=== PATIENT | female | born 1965 | race Caucasian/White ===

== ENCOUNTER 2017-09-08 15:38 | Emergency (ER) | payer OTHER ==
[~2017-09-08] VITALS: Ht 165.1 cm; Wt 59.4 kg
[~2017-09-08 15:38] MED LIST: ASPI325T28 PO; DEPA500T2 PO; MECL12.575 PO; OXYC-517 PO; REGL10TA6 PO; TOPA50TA8 PO; VITA-193 PO; VITMTA PO
[2017-09-08] MEDS ORDERED: MORPHINE 4 MG/ML 1ML SYRINGE IV ONE (16:15)
[2017-09-08] MEDS ORDERED: ONDANSETRON 4MG/2ML VIAL (J2405) IV ONE ×2 (16:15→21:00)
--- NOTE | 2017-09-08 16:30 | REP ---
Chest one-view HISTORY: Infarction Comparison: 02/06/2016 The lungs are clear. The heart is normal in size. The pulmonary vasculature is normal in appearance. Impression: No acute disease. Signed by Lui Marie MD 09/08/2017 04:22 P
--- NOTE | 2017-09-08 16:43 | REP ---
CT brain without contrast: History: CVA. Comparison study: November 07, 2014. CT findings: Preliminary digital porcelain enamel installer radiograph is unremarkable. Bone window settings demonstrate an intact bony calvarium. Visualized paranasal sinuses are clear. No intraorbital abnormality is seen. No vascular calcification is visible. Lateral, third, fourth ventricles are normal in size and position. Elliott-white differentiation pattern is normal above and below the tentorium. There is no evidence of intracranial hemorrhage. No infarct, mass, extra-axial fluid collection or midline shift is seen. Impression: Negative noncontrast brain CT. Signed by Alexi Jones MD 09/08/2017 05:05 P
[2017-09-08 16:47] LABS: BASO # 0.1 10^3/uL (0.0-0.2); BASO % 1.1 % (0.0-1.0); EOS # 0.1 10^3/uL (0.0-0.50); EOS % 2.5 % (0.0-3.0); IMMATURE GRANULOCYTE % 0.2 % (0-0); LYMPH % 36.3 % (24.0-44.0); MEAN CORPUSCULAR HEMOGLOBIN 28.1 pg (27.0-33.0); MEAN CORPUSCULAR HGB CONC 32.8 g/dl (32.0-36.5); MEAN CORPUSCULAR VOLUME 85.7 fl (80.0-96.0); MONO # 0.5 10^3/uL (0.0-0.8); MONO % 9.3 % (0.0-5.0); NEUTROPHILS # 2.9 10^3/uL (1.8-7.7); NEUTROPHILS % 50.6 % (36.0-66.0); PLATELET COUNT, AUTOMATED 213 10^3/uL (150-450); RED CELL DISTRIBUTION WIDTH 14.9 % (11.5-14.5); WHITE BLOOD COUNT 5.6 10^3/uL (4.0-10.0)
[2017-09-08 16:58] LABS: INR 0.93
--- NOTE | 2017-09-08 17:08 | ECGEPIP ---
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
[2017-09-08 17:16] LABS: ANION GAP 3 MEQ/L (8-16); BLOOD UREA NITROGEN 17 MG/DL (7-18); CALCIUM LEVEL 9.4 MG/DL (8.5-10.1); CARBON DIOXIDE LEVEL 30 MEQ/L (21-32); CHLORIDE LEVEL 108 MEQ/L (98-107); CREATININE FOR GFR 0.65 MG/DL (0.55-1.02); GLOMERULAR FILTRATION RATE > 60.0 (>58); GLUCOSE, FASTING 88 MG/DL (70-105); POTASSIUM SERUM 3.9 MEQ/L (3.5-5.1); SODIUM LEVEL 141 MEQ/L (136-145)
[2017-09-08] MEDS ORDERED: MORPHINE 2 MG/ML 1ML SYRINGE IV ONE (17:45)
[2017-09-08 18:46] VITALS: BP 117/55
--- NOTE | 2017-09-08 20:30 | REPUSA ---
CLINICAL HISTORY: -VISION CHANGES, HEADACHE WITH RT SIDED FACIAL PARATHESIAS TECHNIQUE: MRI of the brain was performed without administration of intravenous contrast material. T1 spine echo, T2 fast spin echo, DWI and FLAIR sequences were obtained in sagittal, axial and coronal planes. FINDINGS: The sella and parasellar regions are unremarkable in appearance. The corpus callosum and cerebellar t onsils are of normal configuration and position. There are no intra or extra-axial collections. There is no mass effect or midline shift. There is no evidence of hematoma formation. There is no hydrocep halus. There is asymmetry of lateral ventricles with left lateral ventricle somewhat larger than the right, this is likely congenital and of doubtful clinical concern. The brain stem shows no mass effects, infarcts or hemorrhage. There are no cerebellopontine tumors. T he acoustic nerves are symmetrical. No cerebellar intra-axial pathology delineated. The fourth ventri miesha and aqueduct are normal. No abnormalities of the optic nerves are identified. There is no evidenc e of atrophic or degenerative changes. No dural or subdural masses or collections are detected. The visualized arterial structures demonstrate normal appearing flow voids. The VII and VIII nerve bu ndles are visualized and are unremarkable in appearance. There are no suspicious signal abnormalities within the infra or supratentorial space. Mucosal thickening is seen involving bilateral ethmoid and maxillary sinuses compatible with chronic sinusitis. IMPRESSION: Asymmetry of lateral ventricles with left lateral ventricle somewhat larger than the right, this is l ikely congenital and of doubtful clinical concern. Chronic ethmoid and maxillary sinusitis, otherwise normal MRI of the brain. Thank you for your kind referral of this patient.
--- NOTE | 2017-09-08 20:30 | REPUSA ---
CLINICAL HISTORY: -VISION CHANGES, HEADACHE WITH RT SIDED FACIAL PARATHESIAS TECHNIQUE: Three dimensional qfjo-[id number] angiography is performed of the [place]. The [place] dy was performed without IV contrast agent. FINDINGS: The supraclinoid portions of the internal carotid arteries are of normal shape. The normal bifurcation is seen. The middle cerebral arteries are unremarkable in appearance. The posterior circu lation is visualized and shows no evidence of occlusion or aneurysm formation. The basilar tip is see n and shows no aneurysm formation. There is no evidence of beading to suggest vasculitis. IMPRESSION: MRA of the [place] is within normal limits. Thank you for your kind referral of this patient.
[2017-09-08] MEDS ORDERED: NORCO 5/325MG TABLET (BULK FOR ED) PO ONE (21:00)
== END 2017-09-08 21:41 | disposition home or self-care (01) ==
LOC: M ED 15:38
DX: R51 Headache (principal); Z87.820 Personal history of traumatic brain injury; Z86.73 Personal history of transient ischemic attack (TIA), and cerebral infarction without residual deficits; Z98.890 Other specified postprocedural states
CPT/HCPCS: 36415; 70450; 70544; 70551; 71010; 80048; 82550; 82553; 85025; 85610; 85730; 86850; 86900; 86901; 93005; 93041; 94760; 96374; 96375; 99285; J2405

== ENCOUNTER → 2018-06-29 | Outpatient (REF) | payer OTHER ==
[2018-06-29 17:54] LABS: IRON (FE) 47 UG/DL (50-170)
[2018-06-29 18:03] LABS: VITAMIN B12 LEVEL 983 PG/ML (247-911)
[2018-07-05 10:19] LABS: VITAMIN B1 LEVEL WHOLE BLOOD 82.8 nmol/L (66.5-200.0)
[2018-07-05 10:19] LABS: VITAMIN A, RETINOL LEVEL 23.3 ug/dL (33.1-100.0)
== END ==
LOC: M LAB REF 16:46
DX: Z98.84 Bariatric surgery status (principal)

== ENCOUNTER 2018-09-22 10:46 | Emergency (ER) | payer OTHER ==
[2018-09-22 11:24] LABS: BASO # 0.1 10^3/uL (0.0-0.2); BASO % 1.1 % (0.0-1.0); EOS # 0.1 10^3/uL (0.0-0.50); EOS % 1.5 % (0.0-3.0); HEMOGLOBIN 12.8 g/dl (12.0-15.5); IMMATURE GRANULOCYTE % 0.2 % (0-3.0); LYMPH # 1.6 10^3/uL (1.5-4.5); LYMPH % 29.5 % (24.0-44.0); MEAN CORPUSCULAR HEMOGLOBIN 29.2 pg (27.0-33.0); MEAN CORPUSCULAR HGB CONC 32.8 g/dl (32.0-36.5); MEAN CORPUSCULAR VOLUME 88.8 fl (80.0-96.0); MONO # 0.5 10^3/uL (0.0-0.8); MONO % 9.3 % (0.0-5.0); NEUTROPHILS # 3.1 10^3/uL (1.8-7.7); NEUTROPHILS % 58.4 % (36.0-66.0); PLATELET COUNT, AUTOMATED 212 10^3/uL (150-450); RED BLOOD COUNT 4.39 10^6/uL (4.00-5.40); RED CELL DISTRIBUTION WIDTH 14.2 % (11.5-14.5); WHITE BLOOD COUNT 5.3 10^3/uL (4.0-10.0)
[2018-09-22 11:37] LABS: INR 0.96; PROTHROMBIN TIME 12.8 SECONDS (12.1-14.4)
[2018-09-22 11:38] LABS: PARTIAL THROMBOPLASTIN TIME 27.3 SECONDS (25.4-37.6)
[2018-09-22 11:55] LABS: ALBUMIN 3.7 GM/DL (3.2-5.2); ALBUMIN/GLOBULIN RATIO 1.06 (1.00-1.93); ALKALINE PHOSPHATASE 87 U/L (45-117); ALT/SGPT 33 U/L (12-78); ANION GAP 7 MEQ/L (8-16); AST/SGOT 26 U/L (7-37); BILIRUBIN,DIRECT 0.2 MG/DL (0.0-0.2); BILIRUBIN,TOTAL 0.5 MG/DL (0.2-1.0); BLOOD UREA NITROGEN 11 MG/DL (7-18); CARBON DIOXIDE LEVEL 28 MEQ/L (21-32); CHLORIDE LEVEL 108 MEQ/L (98-107); CK-MB VALUE MASS < 1.0 NG/ML (<3.6); CPK CREATINE PHOSPHOKINASE 105 U/L (26-192); CREATININE FOR GFR 0.68 MG/DL (0.55-1.30); FREE T4 1.01 NG/DL (0.76-1.46); GLOMERULAR FILTRATION RATE > 60.0 (>51); GLUCOSE, FASTING 138 MG/DL (70-100); LIPASE 257 U/L (73-393); MB/CK RELATIVE INDEX 0.95 (< OR =4); POTASSIUM SERUM 3.9 MEQ/L (3.5-5.1); SODIUM LEVEL 143 MEQ/L (136-145); TOTAL PROTEIN 7.2 GM/DL (6.4-8.2); TROPONIN I < 0.02 NG/ML (< 0.10)
[2018-09-22] MEDS: diphenhydrAMINE INJ 50MG/ML VIAL (J1200) IV (13:00)
[2018-09-22] MEDS: ASPIRIN 325 MG TAB PO (13:00)
[2018-09-22] MEDS: NS 1,000 ML IV (13:00)
[2018-09-22] MEDS: METOCLOPRAMIDE INJ 10MG/2ML VIAL (J2765) IV (13:00)
[2018-09-22 13:46] LABS: D-DIMER QUANT < 270.0 ng/ml (<500)
== END 2018-09-22 14:51 | disposition home or self-care (01) ==
LOC: M ED 10:46
DX: R07.89 Other chest pain (principal); R06.02 Shortness of breath; I25.10 Atherosclerotic heart disease of native coronary artery without angina pectoris; I25.2 Old myocardial infarction; Z82.49 Family history of ischemic heart disease and other diseases of the circulatory system; Z98.84 Bariatric surgery status
CPT/HCPCS: J1200

== ENCOUNTER → 2018-10-05 | Outpatient (REF) | payer OTHER ==
[2018-10-05 12:50] LABS: FERRITIN 8 NG/ML (8-252)
[2018-10-05 12:50] LABS: IRON (FE) 111 UG/DL (50-170)
[2018-10-06 17:55] LABS: TOTAL 25(OH) VITAMIN D 21.8 NG/ML (30.0-100.0)
[2018-10-09 14:08] LABS: VITAMIN A, RETINOL LEVEL 17.6 ug/dL (33.1-100.0)
== END ==
LOC: M LAB REF 12:09
DX: Z98.84 Bariatric surgery status (principal)

== ENCOUNTER → 2018-12-01 | Outpatient (REF) | payer OTHER ==
[~2018-12-01] MED LIST changes: +ASPI-222 PO; -ASPI325T28 PO; +HYDR-3363 PO
[2018-12-08 00:06] LABS: VITAMIN A, RETINOL LEVEL 15.7 ug/dL (20.1-62.0); VITAMIN B1 LEVEL WHOLE BLOOD 112.1 nmol/L (66.5-200.0)
== END ==
LOC: M LAB REF 17:08
PROVIDERS: ATTEND Nurse Practitioner Adult Health
DX: J40 Bronchitis, not specified as acute or chronic (principal); Z98.84 Bariatric surgery status

== ENCOUNTER → 2019-03-14 | Outpatient (REF) | payer OTHER | LOC: M LAB REF 12:05 | PROVIDERS: ATTEND Nurse Practitioner Adult Health | DX: E50.9 Vitamin A deficiency, unspecified (principal) ==

== ENCOUNTER → 2019-05-09 | Outpatient (REF) | payer OTHER | LOC: M LAB REF 12:32 | PROVIDERS: ATTEND Nurse Practitioner Adult Health | DX: D50.9 Iron deficiency anemia, unspecified (principal) ==

== ENCOUNTER → 2019-06-09 | Outpatient (REF) | payer OTHER ==
[~2019-06-09] MED LIST changes: +AMOX500C
== END ==
LOC: M LAB REF 16:54
PROVIDERS: ATTEND Physician Assistant
DX: M54.5 Low back pain (principal); R10.32 Left lower quadrant pain

== ENCOUNTER 2019-06-11 04:50 | Emergency (ER) | payer OTHER ==
[~2019-06-11] VITALS: Ht 167.6 cm; Wt 77.3 kg
[~2019-06-11 04:50] MED LIST changes: -AMOX500C
[2019-06-11] MEDS ORDERED: AMOX500C (05:02)
[2019-06-11 05:43] LABS: BASO # 0.1 10^3/uL (0.0-0.2); BASO % 1.2 % (0.0-1.0); EOS # 0.1 10^3/uL (0.0-0.50); EOS % 2.7 % (0.0-3.0); HEMATOCRIT 38.9 % (36.0-47.0); HEMOGLOBIN 12.8 g/dl (12.0-15.5); LYMPH # 1.7 10^3/uL (1.5-4.5); LYMPH % 32.6 % (24.0-44.0); MEAN CORPUSCULAR HEMOGLOBIN 30.9 pg (27.0-33.0); MEAN CORPUSCULAR HGB CONC 32.9 g/dl (32.0-36.5); MONO # 0.6 10^3/uL (0.0-0.8); MONO % 11.5 % (0.0-5.0); NEUTROPHILS # 2.7 10^3/uL (1.8-7.7); NEUTROPHILS % 51.8 % (36.0-66.0); PLATELET COUNT, AUTOMATED 176 10^3/uL (150-450); RED BLOOD COUNT 4.14 10^6/uL (4.00-5.40); WHITE BLOOD COUNT 5.1 10^3/uL (4.0-10.0)
[2019-06-11 06:03] LABS: ALBUMIN 3.5 GM/DL (3.2-5.2); ALT/SGPT 26 U/L (12-78); BILIRUBIN,DIRECT 0.1 MG/DL (0.0-0.2); BILIRUBIN,TOTAL 0.3 MG/DL (0.2-1.0); BLOOD UREA NITROGEN 16 MG/DL (7-18); CALCIUM LEVEL 8.6 MG/DL (8.5-10.1); CARBON DIOXIDE LEVEL 26 MEQ/L (21-32); CHLORIDE LEVEL 112 MEQ/L (98-107); CREATININE FOR GFR 0.63 MG/DL (0.55-1.30); GLOMERULAR FILTRATION RATE > 60.0 (>51); GLUCOSE, FASTING 101 MG/DL (70-100); LIPASE 311 U/L (73-393); POTASSIUM SERUM 4.2 MEQ/L (3.5-5.1); SODIUM LEVEL 142 MEQ/L (136-145); TOTAL PROTEIN 6.5 GM/DL (6.4-8.2)
[2019-06-11] MEDS ORDERED: KETOROLAC 30 MG/ML VIAL (J1885) As Ordered ONE (06:51)
[2019-06-11] MEDS ORDERED: KETOROLAC 30 MG/ML VIAL (J1885) IV ONE (07:00)
[2019-06-11] MEDS ORDERED: NS 1,000 ML IV SCH (07:17)
[2019-06-11] MEDS ORDERED: ISOVUE-370 76% 100ML VIAL (Q9967) As Ordered ONE (07:26)
[2019-06-11] MEDS ORDERED: MORPHINE 4 MG/ML 1ML VIAL/SYRINGE (J2270) IV ONE (07:30)
[2019-06-11 07:38] LABS: CK-MB VALUE MASS < 1.0 NG/ML (<3.6); CPK CREATINE PHOSPHOKINASE 98 U/L (26-192); MB/CK RELATIVE INDEX 1.02 (< OR =4); TROPONIN I < 0.02 NG/ML (< 0.10)
--- NOTE | 2019-06-11 08:52 | REPVR ---
EXAM: CT Abdomen and Pelvis With Contrast EXAM DATE/TIME: 06/11/2019 7:17 AM CLINICAL HISTORY: 53 years old, female; Abdominal pain; Flank; Left; Additional info: L flank pain TECHNIQUE: Imaging protocol: Axial computed tomography images of the abdomen and pelvis with intravenous contrast. Coronal and sagittal reformatted images were created and reviewed. Radiation optimization: All CT scans at this facility use at least one of these dose optimization techniques: automated exposure control; mA and/or kV adjustment per patient size (includes targeted exams where dose is matched to clinical indication); or iterative reconstruction. Contrast material: ISOVUE 370; Contrast volume: 100 ml; Contrast route: IV; COMPARISON: Pelvis, limited US 09/26/2013 3:52 PM FINDINGS: Lungs: Interstitial prominence and mild left-sided airspace disease. Liver: Fatty infiltration of the liver. Gallbladder and bile ducts: No cholelithiasis or biliary ductal dilatation. Pancreas: Borderline pancreatic ductal dilatation without focal mass. Spleen: Inhomogeneous attenuation of the normal size spleen in association with the arterial phase of enhancement. Adrenals: Unremarkable adrenals. Kidneys and ureters: Normal renal morphology. No hydronephrosis or urolithiasis to account for the reported symptomatology. Punctate renal hypodensities which are too small to accurately characterize. Stomach and bowel: Postoperative gastric bypass. Mild jejunal dilatation and wall thickening. Prominent stool. Diverticula, without pericolonic inflammation. Appendix: No acute appendicitis. Intraperitoneal space: No significant free fluid. Vasculature: Normal caliber of the abdominal aorta. Lymph nodes: Subcentimeter lymph nodes. Bladder: Normal bladder morphology. Reproductive: Status post hysterectomy. Bones/joints: Mild scoliosis. Degenerative change and Schmorl's nodes. Soft tissues: Small fat containing umbilical hernia. Calcification and subcutaneous nodules in the left angle region. IMPRESSION: 1. No hydronephrosis or urolithiasis to account for the reported symptomatology. 2. Additional findings as described above. Electronically signed by: Yomi Carl On 06/11/2019 08:52:02 AM
--- NOTE | 2019-06-11 08:58 | REPVR ---
EXAM: CT Angiography Chest With Contrast EXAM DATE/TIME: 06/11/2019 7:17 AM CLINICAL HISTORY: 53 years old, female; Pain; Other: Pleuritic; Additional info: L flank pain/pleuritic R/O pe TECHNIQUE: Imaging protocol: Axial computed tomographic angiography images of the chest with intravenous contrast using CT angiography protocol. Coronal and sagittal reformatted images were created and reviewed. 3D rendering: MIP reconstructed images were created and reviewed. Radiation optimization: All CT scans at this facility use at least one of these dose optimization techniques: automated exposure control; mA and/or kV adjustment per patient size (includes targeted exams where dose is matched to clinical indication); or iterative reconstruction. Contrast material: ISOVUE 370; Contrast volume: 100 ml; Contrast route: IV; COMPARISON: CT Chest without contrast 11/10/2014 12:34 PM FINDINGS: Pulmonary arteries: No pulmonary embolus in the opacified pulmonary arteries. Aorta: Normal caliber of the thoracic aorta. Thyroid: Stable 1.4 x 1.1 cm nodular hypodensity in the right thyroid lobe. Lungs: Interstitial prominence and mild air space disease. Pleural space: No significant pleural effusion. Heart: Cardiomegaly without significant pericardial effusion. Lymph nodes: Mildly enlarged 1.5 x 1.3 cm right paratracheal lymph node. Bones/joints: Schmorl's nodes and degenerative change. Soft tissues: Unremarkable. IMPRESSION: 1. No pulmonary embolus in the opacified pulmonary arteries. 2. Additional findings as described above. Electronically signed by: Yomi Carl On 06/11/2019 08:58:34 AM
[2019-06-11] MEDS ORDERED: ACETAMINOPHEN TAB 650MG DOSE (2X325MG) PO ONE (09:00)
[2019-06-11 09:13] VITALS: BP 131/67
--- NOTE | 2019-06-12 12:04 | ED PDOC ---
Post-Departure Follow-Up dr xavier faxed formal report of cta chest for fu Juliana Skinner MD Jun 12, 2019 12:04
--- NOTE | 2019-06-12 17:13 | ECGEPIP ---
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
== END 2019-06-11 10:25 | disposition home or self-care (01) ==
LOC: M ED 04:50
DX: R10.9 Unspecified abdominal pain (principal); R00.1 Bradycardia, unspecified; R11.0 Nausea; R06.02 Shortness of breath; R51 Headache; I25.2 Old myocardial infarction; Z86.73 Personal history of transient ischemic attack (TIA), and cerebral infarction without residual deficits
CPT/HCPCS: 71275; 74177; 80048; 80076; 81001; 82550; 82553; 83690; 84484; 85025; 93005; 93041; 94760; 96361; 96374; 99284; J1885; Q9967

== ENCOUNTER 2019-06-19 21:26 | Emergency (ER) | payer OTHER ==
[~2019-06-19] VITALS: Ht 165.1 cm; Wt 83.5 kg
[~2019-06-19 21:26] MED LIST changes: +AMOX500C
[2019-06-19] MEDS ORDERED: CIPR-249 PO (21:42)
[2019-06-19 22:20] LABS: BASO # 0.1 10^3/uL (0.0-0.2); BASO % 0.9 % (0.0-1.0); EOS # 0.2 10^3/uL (0.0-0.50); EOS % 2.8 % (0.0-3.0); HEMOGLOBIN 13.2 g/dl (12.0-15.5); LYMPH % 29.9 % (24.0-44.0); MEAN CORPUSCULAR HEMOGLOBIN 30.7 pg (27.0-33.0); MONO # 0.7 10^3/uL (0.0-0.8); MONO % 9.9 % (0.0-5.0); NEUTROPHILS # 3.8 10^3/uL (1.8-7.7); NEUTROPHILS % 56.2 % (36.0-66.0); PLATELET COUNT, AUTOMATED 205 10^3/uL (150-450); WHITE BLOOD COUNT 6.8 10^3/uL (4.0-10.0)
[2019-06-19 22:40] LABS: BLOOD UREA NITROGEN 16 MG/DL (7-18); CALCIUM LEVEL 9.3 MG/DL (8.5-10.1); CARBON DIOXIDE LEVEL 26 MEQ/L (21-32); CHLORIDE LEVEL 110 MEQ/L (98-107); GLOMERULAR FILTRATION RATE > 60.0 (>51); GLUCOSE, FASTING 111 MG/DL (70-100); POTASSIUM SERUM 3.8 MEQ/L (3.5-5.1); SODIUM LEVEL 143 MEQ/L (136-145)
[2019-06-19] MEDS ORDERED: KETOROLAC 30 MG/ML VIAL (J1885) IV ONE (23:00)
[2019-06-19] MEDS ORDERED: NS 1,000 ML IV ONE (23:00)
[2019-06-19] MEDS ORDERED: ONDANSETRON 4MG/2ML VIAL (J2405) IV ONE (23:00)
[2019-06-19] MEDS ORDERED: ISOVUE-370 76% 100ML VIAL (Q9967) As Ordered ONE (23:07)
[2019-06-19 23:09] LABS: ALBUMIN 3.7 GM/DL (3.2-5.2); ALT/SGPT 28 U/L (12-78); BILIRUBIN,DIRECT 0.1 MG/DL (0.0-0.2); BILIRUBIN,TOTAL 0.4 MG/DL (0.2-1.0); LIPASE 420 U/L (73-393)
[2019-06-20 00:31] LABS: CK-MB VALUE MASS 1.1 NG/ML (<3.6); CPK CREATINE PHOSPHOKINASE 93 U/L (26-192); MB/CK RELATIVE INDEX 1.18 (< OR =4); TROPONIN I < 0.02 NG/ML (< 0.10)
--- NOTE | 2019-06-20 00:58 | REPVR ---
EXAM: CT Abdomen and Pelvis With Contrast EXAM DATE/TIME: 06/19/2019 10:51 PM CLINICAL HISTORY: 53 years old, female; Abdominal pain; Flank; Left; Additional info: Left flank pain TECHNIQUE: Imaging protocol: Axial computed tomography images of the abdomen and pelvis with intravenous contrast. Coronal and sagittal reformatted images were created and reviewed. Radiation optimization: All CT scans at this facility use at least one of these dose optimization techniques: automated exposure control; mA and/or kV adjustment per patient size (includes targeted exams where dose is matched to clinical indication); or iterative reconstruction. Contrast material: ISO; Contrast volume: 100 ml; Contrast route: AC; COMPARISON: CT ABD/PEL W/IV CONTRAST ONLY 06/11/2019 7:32 AM FINDINGS: Liver: Liver appears normal with no focal abnormality. Gallbladder and bile ducts: Gallbladder is present and shows no evidence of gallstone. Pancreas: Pancreas appears normal. No focal mass or peripancreatic inflammation. Spleen: Spleen appears homogeneous without focal mass. Adrenals: Adrenal glands are normal in appearance. Kidneys and ureters: Kidneys appear normal, with no stone, solid mass or hydronephrosis. Stomach and bowel: Gastric diversion procedure changes are present without complication. No evidence of small bowel obstruction. No evidence of acute diverticulitis. Appendix: Normal caliber appendix is identified, with no adjacent inflammation. Intraperitoneal space: No pneumoperitoneum. Vasculature: Abdomen the liver shows no focal aneurysm or dissection. Normal luminal caliber and enhancement of the celiac trunk, SMA, main renal arteries, HECTOR and iliac arteries to the inguinal canal level. Lymph nodes: No enlarged lymph nodes. Bladder: Bladder appears normal. Reproductive: Uterus is surgically absent. Bones/joints: Bony structures show no acute fracture or destructive process. Soft tissues: Unremarkable. IMPRESSION: 1. No acute surgical or inflammatory intra-abdominal or pelvic process. 2. No explanation for acute left flank pain Electronically signed by: Jacobo Noriega On 06/20/2019 00:58:28 AM
--- NOTE | 2019-06-20 00:59 | REPVR ---
EXAM: CT Angiography Chest With Contrast EXAM DATE/TIME: 06/19/2019 11:22 PM CLINICAL HISTORY: 53 years old, female; Chest pain; Type not specified; Additional info: Left back pain TECHNIQUE: Imaging protocol: Axial computed tomographic angiography images of the chest with intravenous contrast using CT angiography protocol. Coronal and sagittal reformatted images were created and reviewed. 3D rendering: MIP reconstructed images were created and reviewed. Radiation optimization: All CT scans at this facility use at least one of these dose optimization techniques: automated exposure control; mA and/or kV adjustment per patient size (includes targeted exams where dose is matched to clinical indication); or iterative reconstruction. Contrast material: ISO; Contrast volume: 100 ml; Contrast route: AC; COMPARISON: CT ANGIO CHEST 06/11/2019 7:32 AM FINDINGS: Pulmonary arteries: No focal pulmonary artery filling defect to suggest acute pulmonary embolus. Aorta: No abnormal dilatation of the thoracic aorta. Lungs: Pulmonary vascular/interstitial pattern does not suggest active pulmonary edema. No suspicious lung mass or air space process. No central endobronchial lesion. Pleural space: No pleural effusion or pneumothorax. Heart: No pericardial effusion or overt cardiac enlargement. Lymph nodes: No enlarged mediastinal lymph nodes. Bones/joints: Bony structures show no acute fracture or destructive process. IMPRESSION: 1. No evidence of acute pulmonary embolus. 2. No other acute or concerning focal intrathoracic abnormality. Electronically signed by: Jacobo Noriega On 06/20/2019 00:59:24 AM
[2019-06-20] MEDS ORDERED: ROBA500T PO (01:15)
[2019-06-20] MEDS ORDERED: diazePAM 10 MG TAB PO ONE (01:30)
[2019-06-20] MEDS ORDERED: LIDOCAINE 5% (LIDODERM) PATCH TD ONE (01:30)
[2019-06-20 01:39] VITALS: BP 105/59
--- NOTE | 2019-06-20 02:49 | REP ---
Clinical: Left chest and flank pain . Comparison: 09/22/2018 . Technique: PA and lateral. Findings: The mediastinum and cardiac silhouette are normal. The lung mosley are clear and without acute consolidation, effusion, or pneumothorax. The skeletal structures are intact and normal. Impression: 1. No acute cardiopulmonary process. Electronically Signed by Eliot Giraldo MD 06/20/2019 02:41 A
--- NOTE | 2019-06-20 05:43 | ECGEPIP ---
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
[2019-06-20] MEDS ORDERED: **NOTE PATIENT COMMENT** MISC XX SCH (13:30)
== END 2019-06-20 01:41 | disposition home or self-care (01) ==
LOC: M ED 21:26
DX: M62.830 Muscle spasm of back (principal); R74.8 Abnormal levels of other serum enzymes; G47.33 Obstructive sleep apnea (adult) (pediatric)
CPT/HCPCS: 36415; 71046; 71275; 74177; 80048; 80076; 81001; 82550; 82553; 83690; 84484; 85025; 85379; 87086; 93005; 96374; 96375; 99284; J1885; J2405; Q9967

== ENCOUNTER → 2019-07-06 | Outpatient (REF) | payer OTHER ==
[~2019-07-06] MED LIST changes: +CIPR-249 PO; +CYAN500T9 PO; +ROBA500T PO; -VITA-193 PO
== END ==
LOC: M LAB REF 10:50
PROVIDERS: ATTEND Nurse Practitioner Adult Health
DX: R10.31 Right lower quadrant pain (principal)

== ENCOUNTER → 2019-11-07 | Outpatient (REF) | payer OTHER ==
[~2019-11-07] MED LIST changes: -ASPI-222 PO; +ASPI-527 PO
== END ==
LOC: M LAB REF 13:09
PROVIDERS: ATTEND Nurse Practitioner Adult Health
DX: D50.9 Iron deficiency anemia, unspecified (principal); E50.9 Vitamin A deficiency, unspecified; Z98.84 Bariatric surgery status

== ENCOUNTER 2020-12-23 12:20 | Emergency (ER) | payer OTHER ==
[~2020-12-23] VITALS: Ht 160 cm; Wt 82.2 kg
[~2020-12-23 12:20] MED LIST changes: -CYAN500T9 PO; -MECL12.575 PO; +MECL12.590 PO; +VITA500T37 PO
--- NOTE | 2020-12-23 13:10 | REP ---
INDICATION: CHEST PAIN. COMPARISON: Comparison chest x-ray June 19, 2019. TECHNIQUE: Portable upright AP chest radiograph. FINDINGS: The lungs are well inflated and free of infiltrate. Pleural angles are sharp. Heart size is normal. Pulmonary vasculature is not increased. Monitoring electrodes are present. IMPRESSION: No active disease. <Electronically signed by Floyd Jones > 12/23/20 [id number]
[2020-12-23 13:11] LABS: BASO # 0.1 10^3/uL (0.0-0.2); EOS # 0.2 10^3/uL (0.0-0.5); EOS % 3.1 % (0.0-3.0); HEMATOCRIT 39.3 % (36.0-47.0); HEMOGLOBIN 13.1 g/dl (12.0-15.5); LYMPH # 1.8 10^3/uL (1.5-5.0); LYMPH % 36.7 % (24.0-44.0); MEAN CORPUSCULAR HEMOGLOBIN 31.2 pg (27.0-33.0); MEAN CORPUSCULAR HGB CONC 33.3 g/dl (32.0-36.5); MEAN CORPUSCULAR VOLUME 93.6 fl (80.0-96.0); MONO # 0.5 10^3/uL (0.0-0.8); MONO % 11.1 % (0.0-5.0); NEUTROPHILS # 2.3 10^3/uL (1.5-8.5); NEUTROPHILS % 47.9 % (36.0-66.0); PLATELET COUNT, AUTOMATED 196 10^3/uL (150-450); WHITE BLOOD COUNT 4.9 10^3/uL (4.0-10.0)
[2020-12-23 13:51] LABS: ALBUMIN 3.7 GM/DL (3.2-5.2); ALT/SGPT 32 U/L (12-78); BILIRUBIN,DIRECT 0.1 MG/DL (0.0-0.2); BILIRUBIN,TOTAL 0.5 MG/DL (0.2-1.0); BLOOD UREA NITROGEN 15 MG/DL (7-18); CALCIUM LEVEL 9.5 MG/DL (8.5-10.1); CARBON DIOXIDE LEVEL 26 MEQ/L (21-32); CHLORIDE LEVEL 107 MEQ/L (98-107); CREATININE FOR GFR 0.81 MG/DL (0.55-1.30); FREE T4 0.88 NG/DL (0.76-1.46); GLOMERULAR FILTRATION RATE > 60.0 (>51); GLUCOSE, FASTING 108 MG/DL (70-100); LIPASE 271 U/L (73-393); NT-PRO BNP 159 PG/ML (<125); POTASSIUM SERUM 3.8 MEQ/L (3.5-5.1); SODIUM LEVEL 140 MEQ/L (136-145); TOTAL PROTEIN 6.9 GM/DL (6.4-8.2)
[2020-12-23 16:15] VITALS: BP 121/72
--- NOTE | 2020-12-25 14:23 | ECGEPIP ---
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
== END 2020-12-23 16:49 | disposition home or self-care (01) ==
LOC: M ED 12:20
DX: R00.2 Palpitations (principal); I51.9 Heart disease, unspecified; I25.2 Old myocardial infarction; Z98.84 Bariatric surgery status

== ENCOUNTER → 2021-01-21 | Outpatient (REF) | payer OTHER ==
[2021-01-21 13:49] LABS: FERRITIN 13 NG/ML (8-252); IRON (FE) 151 UG/DL (50-170)
[2021-01-21 13:58] LABS: VITAMIN B12 LEVEL 1517 PG/ML (247-911)
== END ==
LOC: M LAB REF 12:08
PROVIDERS: ATTEND Nurse Practitioner Adult Health
DX: Z98.84 Bariatric surgery status (principal)

== ENCOUNTER → 2021-06-16 | Outpatient (CLI) | payer OTHER ==
[~2021-06-16] MED LIST changes: +MECL-136 PO; -MECL12.590 PO
--- NOTE | 2021-06-18 18:47 | SLEEPCENT ---
DATE: 06/16/2021 ORDERED BY: FRANCISCA Jason Nocturnal polysomnography was performed for evaluation of sleep physiology in this patient with a history of excessive somnolence and nonrestorative sleep. Six hours and 58 minutes of data were reviewed. There were 357.5 minutes of sleep identified. Sleep latency was mildly prolonged at 20 minutes. REM latency was short at 53 minutes. Sleep architecture was fair with some minor fragmentation. There were four REM cycles appreciated. Overall sleep efficiency was 86.7%. The electrocardiogram showed a sinus bradycardia with an average heart rate of 48 beats per minute. Rate ranged 40-80. EEG showed normal waveforms for wake and sleep. There were 103 respiratory events identified of 10 seconds in duration or greater for an apnea-hypopnea index of 17.3. The events were not exclusive to sleep stage nor position. Arousals from respiratory events occurred 9.7 times per hour, and oxygen desaturations fell into the 80s. There was some minor limb activity. Limb movement arousal index was 2.5. IMPRESSION: Obstructive sleep apnea syndrome (G47.33). Apnea-hypopnea index 17.3. RECOMMENDATION: The patient should be encouraged to return to [facility] for [facility]. In the interim, alcohol and sedative avoidance should be practiced and caution exercised during the operation of motor vehicles. cc: Marina Rouse NP
== END ==
LOC: M SLEEP 20:00
PROVIDERS: ATTEND Nurse Practitioner Family
DX: R06.83 Snoring (principal)

== ENCOUNTER → 2022-06-02 | Outpatient (CLI) | payer OTHER | LOC: M RAD 09:48 | PROVIDERS: ATTEND Physician Assistant Surgical | DX: M79.662 Pain in left lower leg (principal) ==

== ENCOUNTER 2022-09-02 14:42 | Emergency (ER) | payer OTHER ==
[~2022-09-02] VITALS: Ht 162.6 cm; Wt 81.9 kg
[2022-09-02 15:09] LABS: BASO # 0.1 10^3/uL (0.0-0.2); BASO % 1.1 % (0.0-1.0); EOS # 0.2 10^3/uL (0.0-0.5); HEMATOCRIT 39.9 % (36.0-47.0); HEMOGLOBIN 12.9 g/dl (12.0-15.5); LYMPH # 2.1 10^3/uL (1.5-5.0); LYMPH % 32.8 % (24.0-44.0); MEAN CORPUSCULAR HEMOGLOBIN 29.9 pg (27.0-33.0); MEAN CORPUSCULAR HGB CONC 32.3 g/dl (32.0-36.5); MEAN CORPUSCULAR VOLUME 92.4 fl (80.0-96.0); MONO # 0.6 10^3/uL (0.0-0.8); MONO % 10.2 % (2.0-8.0); NEUTROPHILS # 3.3 10^3/uL (1.5-8.5); NEUTROPHILS % 52.6 % (36.0-66.0); PLATELET COUNT, AUTOMATED 206 10^3/uL (150-450); RED BLOOD COUNT 4.32 10^6/uL (4.00-5.40); WHITE BLOOD COUNT 6.3 10^3/uL (4.0-10.0)
[2022-09-02 15:27] LABS: INR 0.87; PROTHROMBIN TIME 12.2 SECONDS (12.7-14.5)
[2022-09-02 16:00] LABS: D-DIMER QUANT 296.01 ng/ml (<500)
[2022-09-02 16:05] LABS: ALBUMIN 3.8 GM/DL (3.2-5.2); ALT/SGPT 37 U/L (12-78); BILIRUBIN,DIRECT < 0.1 MG/DL (0.0-0.2); BILIRUBIN,TOTAL 0.3 MG/DL (0.2-1.0); BLOOD UREA NITROGEN 17 MG/DL (7-18); CALCIUM LEVEL 9.7 MG/DL (8.5-10.1); CARBON DIOXIDE LEVEL 28 MEQ/L (21-32); CHLORIDE LEVEL 107 MEQ/L (98-107); CPK CREATINE PHOSPHOKINASE 107 U/L (26-192); GLOMERULAR FILTRATION RATE > 60.0 (>51); GLUCOSE, FASTING 89 MG/DL (70-100); LIPASE 498 U/L (73-393); POTASSIUM SERUM 3.9 MEQ/L (3.5-5.1); SODIUM LEVEL 137 MEQ/L (136-145); TOTAL PROTEIN 7.1 GM/DL (6.4-8.2)
[2022-09-02] MEDS ORDERED: ISOVUE-370 76% 100ML VIAL As Ordered ONE (16:13)
[2022-09-02 16:53] LABS: CK-MB VALUE MASS < 1.0 NG/ML (<3.6); MB/CK RELATIVE INDEX 0.98 (< OR =4)
[2022-09-02 17:16] VITALS: BP 120/56
[2022-09-02] MEDS ORDERED: NAPR-837 PO (17:17)
== END 2022-09-02 17:30 | disposition home or self-care (01) ==
LOC: M ED 14:42
DX: R07.89 Other chest pain (principal); R09.1 Pleurisy; R00.1 Bradycardia, unspecified; I51.9 Heart disease, unspecified; Z98.84 Bariatric surgery status; Z90.710 Acquired absence of both cervix and uterus
CPT/HCPCS: 36415; 71045; 71275; 80048; 80076; 82550; 82553; 83690; 84484; 85025; 85379; 85610; 93005; 93041; 93971; 94760; 99285; Q9967

== ENCOUNTER → 2022-09-09 | Outpatient (REF) | payer OTHER ==
[~2022-09-09] MED LIST changes: +NAPR-837 PO
== END ==
LOC: M LAB REF 16:24
PROVIDERS: ATTEND Nurse Practitioner Adult Health
DX: E04.1 Nontoxic single thyroid nodule (principal)

== ENCOUNTER 2022-09-26 11:00 | Emergency (ER) | payer OTHER ==
[~2022-09-26] VITALS: Ht 162.6 cm; Wt 76.8 kg
[2022-09-26] MEDS ORDERED: ACETAMINOPHEN 500 MG TAB PO ONE (13:05)
[2022-09-26 13:48] VITALS: BP 126/58
== END 2022-09-26 13:50 | disposition home or self-care (01) ==
LOC: M ED 11:00
DX: S82.64XA Nondisplaced fracture of lateral malleolus of right fibula, initial encounter for closed fracture (principal); S80.212A Abrasion, left knee, initial encounter; X50.0XXA Overexertion from strenuous movement or load, initial encounter; Y92.481 Parking lot as the place of occurrence of the external cause; I25.2 Old myocardial infarction; E11.9 Type 2 diabetes mellitus without complications; Z86.73 Personal history of transient ischemic attack (TIA), and cerebral infarction without residual deficits; Z85.41 Personal history of malignant neoplasm of cervix uteri

== ENCOUNTER → 2022-09-29 | Outpatient (CLI) | payer OTHER | LOC: M SOG 09:18 | PROVIDERS: ATTEND Orthopaedic Surgery | DX: M77.31 Calcaneal spur, right foot (principal) ==

== ENCOUNTER → 2022-10-13 | Outpatient (CLI) | payer OTHER | LOC: M SOG 07:57 | PROVIDERS: ATTEND Orthopaedic Surgery | DX: S82.64XA Nondisplaced fracture of lateral malleolus of right fibula, initial encounter for closed fracture (principal); W18.30XA Fall on same level, unspecified, initial encounter; Y92.009 Unspecified place in unspecified non-institutional (private) residence as the place of occurrence of the external cause ==

== ENCOUNTER → 2022-11-04 | Outpatient (CLI) | payer OTHER | LOC: M SOG 07:53 | PROVIDERS: ATTEND Orthopaedic Surgery | DX: S82.64XA Nondisplaced fracture of lateral malleolus of right fibula, initial encounter for closed fracture (principal); W18.30XA Fall on same level, unspecified, initial encounter; Y92.009 Unspecified place in unspecified non-institutional (private) residence as the place of occurrence of the external cause ==

== ENCOUNTER → 2022-12-23 | Outpatient (CLI) | payer OTHER | LOC: M SOG 10:46 | PROVIDERS: ATTEND Orthopaedic Surgery | DX: S82.64XD Nondisplaced fracture of lateral malleolus of right fibula, subsequent encounter for closed fracture with routine healing (principal) ==

== ENCOUNTER → 2023-01-15 | Outpatient (CLI) | payer OTHER | LOC: M WUC 08:25 | PROVIDERS: ATTEND Nurse Practitioner Adult Health | DX: R09.1 Pleurisy (principal); R05.9 Cough, unspecified ==

== ENCOUNTER → 2023-02-08 | Outpatient (CLI) | payer OTHER ==
[~2023-02-08] MED LIST changes: +ISOVUE-370 76% 100ML VIAL As Ordered ONE
== END ==
LOC: M RAD 10:09
PROVIDERS: ATTEND Nurse Practitioner Adult Health
DX: J18.8 Other pneumonia, unspecified organism (principal)

== ENCOUNTER → 2023-03-03 | Outpatient (CLI) | payer OTHER ==
[~2023-03-03] MED LIST changes: -ISOVUE-370 76% 100ML VIAL As Ordered ONE
== END ==
LOC: M WUC 10:09
PROVIDERS: ATTEND Nurse Practitioner Adult Health
DX: Z09 Encounter for follow-up examination after completed treatment for conditions other than malignant neoplasm (principal); Z87.09 Personal history of other diseases of the respiratory system

== ENCOUNTER → 2023-05-27 | Outpatient (REF) | payer OTHER ==
[2023-05-27 13:47] LABS: FERRITIN 9.5 NG/ML (7.3-270.7)
[2023-05-27 13:49] LABS: PERCENT SATURATION 15.8 % (13.2-45.0)
== END ==
LOC: M LAB REF 12:10
PROVIDERS: ATTEND Nurse Practitioner Adult Health
DX: Z98.84 Bariatric surgery status (principal)

== ENCOUNTER → 2025-07-06 | Outpatient (REF) | payer OTHER ==
[2025-07-06 14:56] LABS: IRON (FE) 157.0 UG/DL (50-170); PERCENT SATURATION 38.4 % (13.2-45.0); PHOSPHORUS LEVEL 4.0 MG/DL (2.5-4.9)
[2025-07-06 14:59] LABS: VITAMIN B12 LEVEL 642.0 PG/ML (211-911)
[2025-07-10 18:18] LABS: VITAMIN A, RETINOL LEVEL 43 mcg/dL (38-98)
== END ==
LOC: M LAB REF 14:12
PROVIDERS: ATTEND Internal Medicine
DX: Z98.84 Bariatric surgery status (principal)

== ENCOUNTER 2025-10-22 06:54 | Emergency (ER) | payer OTHER ==
[~2025-10-22] VITALS: Ht 162.6 cm; Wt 68.3 kg
[2025-10-22] MEDS ORDERED: DICL20GE TP (09:22)
[2025-10-22 09:23] VITALS: BP 137/61; TEMP 97.8; O2SAT 98
== END 2025-10-22 09:27 | disposition home or self-care (01) ==
LOC: M ED 06:54
DX: M70.22 Olecranon bursitis, left elbow (principal); W22.8XXA Striking against or struck by other objects, initial encounter; Y92.9 Unspecified place or not applicable; Y93.89 Activity, other specified; Y99.9 Unspecified external cause status; Z86.73 Personal history of transient ischemic attack (TIA), and cerebral infarction without residual deficits; I25.2 Old myocardial infarction; G47.33 Obstructive sleep apnea (adult) (pediatric)